=== PATIENT | male | born 1950 | race African-American/Black ===

== ENCOUNTER → 2017-01-08 | Day surgery (SDC) | payer MEDICARE, BC, OTHER ==
[~2017-01-08] VITALS: Ht 185.4 cm; Wt 93.2 kg
[~2017-01-08] MED LIST: AMIT8CAP6 PO; AMLO10TA2 PO; ASPI81TA11 PO; ATOR1TAB18 PO; BACT800T5 PO; BUPIVACAINE HCL PF 0.5% 30 ML VIAL OTHER ONE; COLA100C3 PO; CORE25TA PO; DO NOT ADM ANY ANTICOAGULANT DRUGS XX PRN; FERR1TAB36 PO; GABA300C5 PO; INSULIN HUMAN REGULAR 1,000 UNITS/10 ML VIAL SQ PRN; ISOS20TA PO; K-PHTAB PO; LACTATED RINGER'S 1000 ML IV SCH; LEVEMIR SQ; LIDOCAINE HCL 2% 50 ML VIAL OTHER ONE; LOSA100T PO; MAGN400T PO; METOPROLOL TARTRATE 25 MG TAB PO PRN; MIDAZOLAM HCL 2 MG/2 ML VIAL ONE; MULT1TAB84 PO; MYCO500 PO; NOVORP2 SQ; ONDANSETRON HCL 4 MG/2 ML VIAL IV PRN; PHENYLEPH/NS 1000 MCG/10 ML SYR IV ONE; POTA-163 PO; PRED5TAB PO; PROPOFOL 200 MG/20 ML AMP IV ONE; PROT40TA PO; SENS60TA PO; SODIUM CHLORID 0.9% 500 ML IV SCH; TACR1 PO; TAMS5CAP PO; TUMS500C CHEW; VITATAB11 PO; ceFAZolin INJ 1,000 MG VIAL IV ONE; oxyCODONE/ACETAMINOPHEN 5 MG/325 MG TAB PO PRN
[2017-01-08 10:54] VITALS: BP 110/73; PULSE 82; RESP 18; TEMP 98.1; O2SAT 98
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
[2017-01-08 16:20] VITALS: BP 135/88; PULSE 61; RESP 16; TEMP 97.4; O2SAT 99
--- NOTE | 2017-01-10 13:27 | MP ---
cc: [facility] MD DATE OF PROCEDURE 01/08/2017 PREOPERATIVE DIAGNOSIS Status post kidney transplant with PD catheter. POSTOPERATIVE DIAGNOSIS Status post kidney transplant with PD catheter. PROCEDURE PERFORM PD catheter removal. SURGEON Dr. Jimmie Chavarria INDICATIONS FOR PROCEDURE The patient is a 66-year-old male who underwent a kidney transplant about 10 weeks ago. He has done well and is voiding well with a good creatinine. His PD catheter thus is eligible for removal he is here today for removal of his PD catheter. PROCEDURE The patient received prophylactic intravenous antibiotics, followed by MAC anesthesia. In the OR, once the patient was positioned, prepped and draped in sterile fashion, the catheter exit site of the wound was infiltrated with a Marcaine/lidocaine anesthetic solution. The entrance site was extended about 0.5 cm medially and laterally and with this the catheter was pulled to reveal the incorporated outer cuff. This was dissected free of the surrounding adherent tissue using cautery. Once this was removed, the catheter again had tension applied to it to give an estimated location for the second cuff. Upon given an estimation of the location of the second cuff, an incision was made overlying the designated area. Prior to incision, the area was infiltrated with the local anesthetic. Incision was made and extended down past Carol's fascia and down into the site of his catheter. This catheter was then exposed and with upward traction the cuff was located and similarly dissected free from the surrounding adherent tissue using cautery. Of note, prior to completion of the cuff from the adherent fascia and peritoneum, a 2-0 PDS suture was used to anchor the opening of the entrance site. Upon completion of the dissection, the catheter was removed and the suture was then used to encircle the defect and form a pursestring suture. This was cinched down and closed to seal the abdominal wall. The area was then irrigated thoroughly and copiously and the overlying Carol's fascia was closed using an interrupted 4-0 Monocryl. The wound was then irrigated copiously and the skin was approximated using srinivasan. The original exit site wound was then trimmed of its excess and nonviable tissue. The area was then irrigated copiously with fluid and was left open to allow for drainage. The both wounds were then dressed with a 4x4 and bandage. The patient tolerated the procedure well. There were no complications during the case. ESTIMATED BLOOD LOSS Minimal to none. MD VAMSHI Navarro/BOB /3:37 PM /1:09 PM MTDD
--- NOTE | 2017-02-22 08:03 | HHI.HP ---
History of Present Illness Service [facility] Primary Care Physician Non-Staff Admission Diagnosis S/P DD Kidney Transplant for PD cath removal Diagnoses: History of Present Illness 66 yo male who is over 6 weeks since his renal transplant. The graft is functioning well and he has recovered well from the procedure. He is here for a scheduled removal of his PD catheter. Review of Systems Constitutional: DENIES: Diaphoretic episodes, Fatigue, Fever, Weight gain, Weight loss, Chills, Dizziness, Change in appetite, Night Sweats Endocrine: DENIES: Heat/cold intolerance, Polydipsia, Polyuria, Polyphagia Eyes: DENIES: Blurred vision, Diplopia, Eye inflammation, Eye pain, Vision loss , Photosensitivity, Double Vision Ears, nose, mouth, throat: DENIES: Tinnitus, Hearing loss, Vertigo, Nasal discharge, Oral lesions, Throat pain, Hoarseness, Ear Pain, Running Nose, Epistaxis, Sinus Pain, Toothache, Odynophagia Respiratory: DENIES: Apneas, Cough, Snoring, Wheezing, Hemoptysis, Sputum production, Shortness of breath Cardiovascular: DENIES: Chest pain, Palpitations, Syncope, Dyspnea on Exertion , PND, Lower Extremity Edema, Orthopnea, Claudication Gastrointestinal: DENIES: Abdominal pain, Black stools, Bloody stools, Constipation, Diarrhea, Nausea, Vomiting, Difficulty Swallowing, Anorexia Genitourinary: DENIES: Sexual dysfunction, Urinary frequency, Urinary incontinence, Urgency, Hematuria, Dysuria, Nocturia, Penile Discharge, Testicular Pain, Testicular Swelling Musculoskeletal: DENIES: Joint pain, Muscle aches, Stiffness, Joint Swelling, Back pain, Neck pain Integumentary: DENIES: Abnormal pigmentation, Nail changes, Pruritus, Rash Hematologic/lymphatic: DENIES: Bruising, Lymphadenopathy Immunologic/allergic: DENIES: Eczema, Urticaria Neurologic: DENIES: Abnormal gait, Headache, Localized weakness, Paresthesias, Seizures, Speech Problems, Tremor, Poor Balance Psychiatric: DENIES: Anxiety, Confusion, Mood changes, Depression, Hallucinations, Agitation, Suicidal Ideation, Homicidal Ideation, Delusions Past Family Social History Allergies: Coded Allergies: Clonidine (Verified Allergy, Intermediate, Hives, 10/25/16) Past Medical History CAD HTN ESRD Past Surgical History DD KTx PD catheter Reported Medications ASA Family History none for ESRD Social History h/o tobacco Physical Exam Vital Signs T 97.4 HR 67 RR 15 BP 124/82 Physical Exam GENERAL: This is a well-nourished, well-developed patient, in no apparent distress. SKIN: No rashes, ecchymoses or lesions. Cool and dry. HEAD: Atraumatic. Normocephalic. No temporal or scalp tenderness. EYES: Pupils equal round and reactive. Extraocular motions intact. No scleral icterus. No injection or drainage. ENT: Nose without bleeding, purulent drainage or septal hematoma. Airway patent. NECK: Trachea midline. No JVD or lymphadenopathy. Supple, nontender, no meningeal signs. CARDIOVASCULAR: Regular rate and rhythm without murmurs, gallops, or rubs. RESPIRATORY: Clear to auscultation. Breath sounds equal bilaterally. No wheezes , rales, or rhonchi. GASTROINTESTINAL: Abdomen soft, non-tender, nondistended. No hepato-splenomegaly , or palpable masses. No guarding. Incision healed from previous drainage site; PD cath site w/o infection MUSCULOSKELETAL: Extremities without clubbing, cyanosis, or edema. No joint tenderness, effusion. Less edema noted. NEUROLOGICAL: Awake and alert. Motor and sensory grossly within normal limits. 4 out of 5 muscle strength in all muscle groups. Normal speech. Laboratory Labs acceptable for OR Assessment and Plan Assessment and Plan Ok to proceed with PD cath removal; Risks and benefits reviewed with Amelia Coronado, consent signed. Raffi Chavarria MD Feb 22, 2017 08:03
== END | disposition home or self-care (01) ==
LOC: HSDC 10:06
PROVIDERS: ATTEND Surgery
DX: Z49.02 Encounter for fitting and adjustment of peritoneal dialysis catheter (principal); Z94.0 Kidney transplant status; I10 Essential (primary) hypertension; E78.5 Hyperlipidemia, unspecified; Z88.8 Allergy status to other drugs, medicaments and biological substances; K21.9 Gastro-esophageal reflux disease without esophagitis
CPT/HCPCS: 00700; 49422; 74000; 82948; J0690; J2250; J2370; J3010; J7120

== ENCOUNTER → 2017-05-13 | Outpatient (CLI) | payer MEDICARE, BC, OTHER ==
[~2017-05-13] MED LIST changes: -BUPIVACAINE HCL PF 0.5% 30 ML VIAL OTHER ONE; -DO NOT ADM ANY ANTICOAGULANT DRUGS XX PRN; -INSULIN HUMAN REGULAR 1,000 UNITS/10 ML VIAL SQ PRN; -LACTATED RINGER'S 1000 ML IV SCH; -LIDOCAINE HCL 2% 50 ML VIAL OTHER ONE; -METOPROLOL TARTRATE 25 MG TAB PO PRN; -MIDAZOLAM HCL 2 MG/2 ML VIAL ONE; -ONDANSETRON HCL 4 MG/2 ML VIAL IV PRN; -PHENYLEPH/NS 1000 MCG/10 ML SYR IV ONE; -POTA-163 PO; -PROPOFOL 200 MG/20 ML AMP IV ONE; -SENS60TA PO; -SODIUM CHLORID 0.9% 500 ML IV SCH; -ceFAZolin INJ 1,000 MG VIAL IV ONE; -oxyCODONE/ACETAMINOPHEN 5 MG/325 MG TAB PO PRN
== END ==
LOC: CLAB 09:59
PROVIDERS: ATTEND Specialist
DX: Z12.5 Encounter for screening for malignant neoplasm of prostate (principal)
CPT/HCPCS: 84153